=== PATIENT | male | born 1985 ===

== ENCOUNTER 2021-09-12 19:05 | Emergency (ER) | payer SELFPAY ==
[2021-09-12] MEDS ORDERED: NALOXONE 0.4 MG/1 ML INJ IV ONE (19:53)
[2021-09-12] MEDS ORDERED: SODIUM CHLORIDE 0.9% 1000 ML 1,000 ML IV ONE (19:53)
[2021-09-12 20:22] LABS: Basophils % (Auto) 0.4 % (0.0-1.8); Eosinophils % (Auto) 0.5 % (0.0-4.3); Hematocrit 45.4 % (35.5-45.6); Hemoglobin 15.2 gm/dl (11.8-15.2); Lymphocytes # (Auto) 2.2 K/mm3 (1.2-5.4); Mean Corpuscular HGB Conc 33 % (32-34); Mean Corpuscular Volume 95 fl (84-94); Monocytes # (Auto) 0.6 K/mm3 (0.0-0.8); Monocytes % (Auto) 7.3 % (0.0-7.3); Platelet Count 204 K/mm3 (140-440); Red Blood Count 4.79 M/mm3 (3.65-5.03); Red Cell Distribution Width 12.6 % (13.2-15.2)
[2021-09-12 20:29] LABS: INR 0.97 (0.87-1.13)
[2021-09-12 20:47] LABS: Alanine Aminotransferase 23 units/L (7-56); Albumin 4.8 g/dL (3.9-5); BUN/Creatinine Ratio 19; Blood Urea Nitrogen 19 mg/dL (9-20); Calcium 8.7 mg/dL (8.4-10.2); Hemolysis Index 7
[2021-09-12 23:04] LABS: C-Reactive Protein < 0.30 mg/dL (0.00-1.30)
--- NOTE | 2021-09-12 23:17 | Emergency Department Report ---
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 Intubated and given 1mg of Narcan. 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 Currently AAOX3. No respiratory distress. Stated that he used cocaine and marijuana today. -: Sudden, hour(s) Improves with: none Associated Symptoms: denies: denies other symptoms Treatments Prior to Arrival: none - Related Data Allergies Allergy/AdvReac Type Severity Reaction Status Date / Time No Known Allergies Allergy Verified 09/12/21 20:16 ED Review of Systems ROS: Stated complaint: OD Other details as noted in HPI Constitutional: denies: chills, fever Eyes: denies: eye pain, eye discharge, vision change ENT: denies: ear pain, throat pain Respiratory: denies: cough, shortness of breath, wheezing Cardiovascular: denies: chest pain, palpitations Endocrine: no symptoms reported Gastrointestinal: denies: abdominal pain, nausea, diarrhea Genitourinary: denies: urgency, dysuria Musculoskeletal: denies: back pain, joint swelling, arthralgia Skin: denies: rash, lesions Neurological: denies: headache, weakness, paresthesias Psychiatric: denies: anxiety, depression Hematological/Lymphatic: denies: easy bleeding, easy bruising ED Past Medical Hx - Past Medical History Previous Medical History?: No - Surgical History Past Surgical History?: No - Social History Smoking Status: Never Smoker Substance Use Type: None ED Physical Exam - General Limitations: Language Barrier General appearance: alert, in no apparent distress, appears intoxicated - Head Head exam: Present: atraumatic, normocephalic - Eye Eye exam: Present: normal appearance - ENT ENT exam: Present: mucous membranes moist - Neck Neck exam: Present: normal inspection - Respiratory Respiratory exam: Present: normal lung sounds bilaterally. Absent: respiratory distress - Cardiovascular Cardiovascular Exam: Present: regular rate, normal rhythm. Absent: systolic murmur, diastolic murmur, rubs, gallop - GI/Abdominal GI/Abdominal exam: Present: soft, normal bowel sounds - Rectal Rectal exam: Present: deferred - Extremities Exam Extremities exam: Present: normal inspection - Back Exam Back exam: Present: normal inspection - Neurological Exam Neurological exam: Present: alert, oriented X3 - Psychiatric Psychiatric exam: Present: normal affect, normal mood. Absent: depressed, agitated, anxious, flat affect - Skin Skin exam: Present: warm, dry, intact, normal color. Absent: rash ED Course Vital Signs 09/12/21 09/12/21 09/12/21 19:06 20:01 20:15 Temperature 98 F Pulse Rate 74 85 Respiratory 18 4 L Rate Blood Pressure 127/89 127/89 124/74 O2 Sat by Pulse 100 Oximetry 09/12/21 09/12/21 09/12/21 20:31 20:45 21:01 Temperature Pulse Rate 82 91 H 108 H Respiratory 10 L 6 L 7 L Rate Blood Pressure 124/74 127/79 127/79 O2 Sat by Pulse Oximetry 09/12/21 21:15 Temperature Pulse Rate 108 H Respiratory 8 L Rate Blood Pressure 115/70 O2 Sat by Pulse Oximetry ED Medical Decision Making - Lab Data Result diagrams: 09/12/21 20:03 09/12/21 20:03 - Radiology Data Radiology results: report reviewed, image reviewed - Medical Decision Making he is awake and alert , denies SI or HI , feels safe t go home Critical care attestation.: If time is entered above; I have spent that time in minutes in the direct care of this critically ill patient, excluding procedure time. ED Disposition Clinical Impression: Accidental overdose Disposition: 01 HOME / SELF CARE / HOMELESS Is pt being admited?: No Does the pt Need Aspirin: No Condition: Stable Instructions: Accidental Drug Poisoning, Adult Referrals: IRISH PERRIN MD [Primary Care Provider] - 3-5 Days
[2021-09-13 04:57] VITALS: BP 128/78
== END 2021-09-13 04:56 | disposition home or self-care (01) ==
LOC: ED 19:05
DX: T50.901A Poisoning by unspecified drugs, medicaments and biological substances, accidental (unintentional), initial encounter (principal); Y92.89 Other specified places as the place of occurrence of the external cause
CPT/HCPCS: 36415; 80053; 82140; 82550; 83880; 84484; 85025; 85610; 86140; 96361; 96374; 99284; J2310; J7030; 80320; G0480